=== PATIENT | male | born 1955 | race Caucasian/White ===

== ENCOUNTER 2018-11-19 02:40 | Emergency (ER) | payer MEDICARE, MEDICAID ==
[~2018-11-19] VITALS: Ht 172.7 cm; Wt 118.2 kg
[~2018-11-19 02:40] MED LIST: BUPR1FIL3 SL; DIAZ10 PO; GABA-533 PO; MECL-111 PO; TRAM50TA4 PO
[2018-11-19] MEDS ORDERED: RANI150T7 PO (03:31)
[2018-11-19] MEDS ORDERED: FLUT16H NASAL (03:31)
[2018-11-19] MEDS ORDERED: LEVE250T55 PO (03:31)
[2018-11-19] MEDS ORDERED: TAMS-1 PO (03:31)
[2018-11-19] MEDS ORDERED: GABA-529 PO (03:35)
[2018-11-19] MEDS ORDERED: LORazepam 2 MG/ML VIAL IM ONE (04:00)
[2018-11-19] MEDS ORDERED: GABAPENTIN 100 MG CAPSULE PO ONE (04:00)
[2018-11-19 04:32] LABS: BASOPHILS % (AUTO) 0.3 % (0.0-2.0); EOSINOPHILS % (AUTO) 0.8 % (1.0-6.0); HEMATOCRIT 43.8 % (41-53); HEMOGLOBIN 14.4 g/dL (13.5-17.5); LYMPHOCYTES # (AUTO) 3.2 K/uL (1.0-4.8); LYMPHOCYTES % (AUTO) 40.6 % (22.0-44.0); MEAN CORPUSCULAR HEMOGLOBIN 29.2 pg (26.0-34.0); MEAN CORPUSCULAR HGB CONC 32.8 G/dL (31.0-37.0); MEAN CORPUSCULAR VOLUME 89 fL (80-100); MONOCYTES # (AUTO) 0.4 K/uL (0.1-1.0); MONOCYTES % (AUTO) 4.8 % (2.0-9.0); NEUTROPHILS # (AUTO) 4.3 K/uL (1.8-7.7); NEUTROPHILS % (AUTO) 53.5 % (40.0-70.0); PLATELET COUNT (AUTO) 206 K/uL (150-450); RED BLOOD CELL COUNT(AUTO) 4.92 MIL/uL (4.50-5.90); RED CELL DISTRIBUTION WIDTH 13.6 % (11.5-14.5)
[2018-11-19 04:39] LABS: ANION GAP 11 mmol/L (8-16); CALCIUM, TOTAL 9.2 mg/dL (8.8-10.5); CARBON DIOXIDE 24 mmol/L (22-29); CHLORIDE 103 mmol/L (98-107); CREATININE 0.99 mg/dL (0.60-1.30); GLOMERULAR FILTR. RATE CALC > 60 mL/min (>60); GLUCOSE,RANDOM 102 mg/dL (70-110); SODIUM SERUM 138 mmol/L (136-145); UREA NITROGEN, BLOOD 18 mg/dL (7-18)
[2018-11-19 04:44] LABS: ALANINE AMINOTRANSFERASE 25 U/L (12-78); ALBUMIN 3.8 g/dL (3.4-5.0); ALKALINE PHOSPHATASE 96 U/L (46-116); ASPARTATE AMINOTRANSFERASE 15 U/L (15-37); BILIRUBIN,TOTAL 0.5 mg/dL (0.1-1.0); TOTAL PROTEIN, SERUM 7.3 g/dL (6.4-8.2)
[2018-11-19 05:00] VITALS: BP 168/90
== END 2018-11-19 05:39 | disposition home or self-care (01) ==
LOC: EMS 02:41
DX: F41.9 Anxiety disorder, unspecified (principal); G47.00 Insomnia, unspecified; H81.02 Meniere's disease, left ear; Z88.6 Allergy status to analgesic agent; Z79.899 Other long term (current) drug therapy
CPT/HCPCS: 36415; 80053; 85025; 96372; 99283; J2060